=== PATIENT | male | born 1985 | race African-American/Black ===

== ENCOUNTER 2019-03-11 09:59 | Emergency (ER) | payer OTHER ==
[~2019-03-11] VITALS: Ht 190.5 cm; Wt 170.1 kg
[~2019-03-11 09:59] MED LIST: LISINOPRIL5 MG PO; NAPROSYN500 MG PO; PROVENTIL HFA6.7 G1 INH
[2019-03-11 10:00] VITALS: BP 142/89
[2019-03-11] MEDS ORDERED: CLOTRIMAZOLE 1%15 G1 TOP (10:36)
== END 2019-03-11 10:44 | disposition home or self-care (01) ==
LOC: ER 09:59
DX: N48.1 Balanitis (principal); I10 Essential (primary) hypertension